=== PATIENT | male | born 1950 | race Caucasian/White ===

== ENCOUNTER → 2017-12-20 | Day surgery (SDC) | payer MEDICARE ==
[~2017-12-20] VITALS: Ht 182.9 cm; Wt 75.0 kg
[~2017-12-20] MED LIST: ALPR1TAB6 PO; AMLO5TAB4 PO; ASPI-621 PO; ASPI1TAB PO; ATOR-2 PO; CLON-365 PO; CLOP75TA PO; LISI-420 PO; MELA1TAB35 PO; MULT-758 PO; OMEP20CA14 PO; PLEASE ENTER HEIGHT AND WEIGHT MC SCH; POLY17PO5 PO; PROPOFOL 10 MG/ML, 20ML ONE; SODIUM CHLORIDE 0.9% 1,000 ML IV SCH; UBID50TA3 PO
[2017-12-20 11:06] VITALS: BP 158/85
== END ==
LOC: CACL 10:41
PROVIDERS: ATTEND Internal Medicine Cardiovascular Disease
DX: I35.1 Nonrheumatic aortic (valve) insufficiency (principal); I10 Essential (primary) hypertension; E78.5 Hyperlipidemia, unspecified
CPT/HCPCS: 93312; 93321; 93325; J2704

== ENCOUNTER 2018-02-12 09:49 | Day surgery (SDC) | payer MEDICARE ==
[~2018-02-12 09:49] MED LIST changes: -PLEASE ENTER HEIGHT AND WEIGHT MC SCH; -PROPOFOL 10 MG/ML, 20ML ONE; -SODIUM CHLORIDE 0.9% 1,000 ML IV SCH
[2018-02-12] MEDS ORDERED: LIDOCAINE-MPF 2% ,5ML ONE (10:27)
[2018-02-12] MEDS ORDERED: POLYETHYLENE GLYCOL 17 GM PACKET PO PRN (11:00)
[2018-02-12] MEDS ORDERED: ALPRazolam 1MG TABLET PO SCH (16:00)
[2018-02-12] MEDS ORDERED: OMEPRAZOLE 20 MG CAPSULE.DR PO SCH (21:00)
[2018-02-12] MEDS ORDERED: MELATONIN 3 MG PO SCH (21:00)
[2018-02-12] MEDS ORDERED: ATORVASTATIN 80 MG TABLET PO SCH (21:00)
[2018-02-13] MEDS ORDERED: ASPIRIN 81 MG TABLET EC PO SCH (06:00)
[2018-02-13] MEDS ORDERED: LISINOPRIL 20 MG TABLET PO SCH (09:00)
[2018-02-13] MEDS ORDERED: UBIDECARENONE 100 MG PO SCH (09:00)
[2018-02-13] MEDS ORDERED: CLOPIDOGREL 75 MG TABLET PO SCH (09:00)
[2018-02-13] MEDS ORDERED: AMLODIPINE 5 MG TABLET PO SCH (09:00)
== END 2018-02-12 11:07 ==
LOC: CACL 09:49
PROVIDERS: ATTEND Internal Medicine Cardiovascular Disease
DX: I63.9 Cerebral infarction, unspecified (principal); E78.5 Hyperlipidemia, unspecified; Z79.82 Long term (current) use of aspirin; Z88.0 Allergy status to penicillin; Z88.1 Allergy status to other antibiotic agents
CPT/HCPCS: 33282; C1764; J3490

== ENCOUNTER → 2018-04-23 | Outpatient (CLI) | payer MEDICARE ==
[~2018-04-23] MED LIST changes: -CLON-365 PO; +CLON1TAB4 PO
== END | disposition home or self-care (01) ==
LOC: CFH 08:10
PROVIDERS: ATTEND Internal Medicine Cardiovascular Disease
DX: I21.19 ST elevation (STEMI) myocardial infarction involving other coronary artery of inferior wall (principal); I25.9 Chronic ischemic heart disease, unspecified; I44.0 Atrioventricular block, first degree; I10 Essential (primary) hypertension; K21.9 Gastro-esophageal reflux disease without esophagitis; Z79.02 Long term (current) use of antithrombotics/antiplatelets; Z79.82 Long term (current) use of aspirin
CPT/HCPCS: 78452; 93017; A9502

== ENCOUNTER → 2018-07-17 | Outpatient (CLI) | payer MEDICARE ==
[~2018-07-17] MED LIST changes: +CLON1TAB11 PO; -CLON1TAB4 PO
[2018-07-17 15:57] LABS: ALANINE AMINOTRANSFERASE 44 U/L (12-78); ALBUMIN 4.5 g/dL (3.4-5.0)
[2018-07-17 16:22] LABS: CREATINE KINASE, TOTAL 104 U/L (39-308)
[2018-07-17 16:23] LABS: FOLATE LEVEL > 20.0 ng/mL (3.1-17.5)
== END | disposition home or self-care (01) ==
LOC: CFH 10:58
PROVIDERS: ATTEND Nurse Practitioner Family
DX: I63.9 Cerebral infarction, unspecified (principal)
CPT/HCPCS: 36415; 82040; 82550; 82607; 82746; 83519; 84403; 84425; 84443; 84450; 84460

== ENCOUNTER → 2018-08-18 | Outpatient (CLI) | payer MEDICARE ==
[~2018-08-18] MED LIST changes: -ASPI-621 PO; +ASPI81TA45 PO
== END | disposition home or self-care (01) ==
LOC: CFH 07:23
PROVIDERS: ATTEND Nurse Practitioner Family
DX: M51.36 Other intervertebral disc degeneration, lumbar region (principal); M47.892 Other spondylosis, cervical region; M48.03 Spinal stenosis, cervicothoracic region; M48.07 Spinal stenosis, lumbosacral region; I63.9 Cerebral infarction, unspecified; G31.89 Other specified degenerative diseases of nervous system; M62.81 Muscle weakness (generalized)
CPT/HCPCS: 70551; 72141; 72148

== ENCOUNTER 2018-08-20 18:01 | Inpatient (IN) | payer MEDICARE ==
[~2018-08-20] VITALS: Ht 182.9 cm; Wt 73.4 kg
[2018-08-20 19:04] LABS: BASOPHILS # (AUTO) 0.01 x10^3/uL (0-0.1); BASOPHILS % (AUTO) 0 % (0-1); EOSINOPHILS # (AUTO) 0.04 x10^3/uL (0-0.4); EOSINOPHILS % (AUTO) 1 % (1-7); LYMPHOCYTES # (AUTO) 1.23 x10^3/uL (1-3.4); LYMPHOCYTES % (AUTO) 22 % (22-44); MD NO; MEAN CORPUSCULAR HEMOGLOBIN 31.2 pg (27.5-34.5); MEAN CORPUSCULAR VOLUME 91.8 fL (81-97); MEAN PLATELET VOLUME 8.4 fL (7.4-10.4); MONOCYTES # (AUTO) 0.34 x10^3/uL (0.2-0.8); MONOCYTES % (AUTO) 6 % (2-9); NEUTROPHILS # (AUTO) 3.91 x10^3/uL (1.8-6.8); NEUTROPHILS % (AUTO) 71 % (42-75); PLATELET COUNT 289 x10^3/uL (130-400); RED BLOOD COUNT 5.18 x10^6/uL (4.38-5.82); RED CELL DISTRIBUTION WIDTH 14.1 % (9.4-14.8)
[2018-08-20 19:10] LABS: INTERNATIONAL NORMALIZED RATIO 1.07 (0.93-1.1); PROTHROMBIN TIME 11.3 Seconds (9.6-11.5)
[2018-08-20 19:12] LABS: ALANINE AMINOTRANSFERASE 32 U/L (12-78); ANION GAP 7 mmol/L (5-15); CALCIUM 8.8 mg/dL (8.5-10.1); CHLORIDE 106 mmol/L (98-107); CREATININE 0.84 mg/dL (0.7-1.3)
[2018-08-20 19:17] LABS: ALKALINE PHOSPHATASE 44 U/L (45-117); BILIRUBIN,TOTAL 0.5 mg/dL (0.2-1.0); TROPONIN I < 0.015 ng/mL (0.000-0.045)
[2018-08-20] MEDS ORDERED: BISACODYL 10 MG SUPP PR PRN (22:00)
[2018-08-20] MEDS ORDERED: LABETALOL 5MG/ML, 20ML IVPush PRN (22:00)
[2018-08-20] MEDS ORDERED: POLYETHYLENE GLYCOL 17 GM PACKET PO PRN (22:00)
[2018-08-20] MEDS ORDERED: PROMETHAZINE 25 MG/ML, 1ML IM PRN (22:00)
[2018-08-20] MEDS ORDERED: ONDANSETRON 2MG/ML, 2ML IVPush PRN (22:00)
[2018-08-20] MEDS ORDERED: OXYcodone IR 5MG TABLET PO PRN (22:00)
[2018-08-20] MEDS ORDERED: hydrALAzine 20 MG/ML, 1ML IVPush PRN (22:00)
[2018-08-20] MEDS ORDERED: METHOCARBAMOL 500 MG TABLET PO PRN (22:00)
[2018-08-20] MEDS ORDERED: morphine SULFATE 10 MG/ML, 1ML IVPush PRN (22:00)
[2018-08-20] MEDS ORDERED: GABAPENTIN 300 MG CAPSULE PO PRN (22:00)
[2018-08-20 22:32] LABS: FREE T4 (FREE THYROXINE) 1.32 ng/dL (0.76-1.46); THYROID STIMULATING HORMONE 2.88 mIU/L (0.358-3.740)
[2018-08-20 23:47] VITALS: BP 148/83
[2018-08-21] MEDS: SODIUM CHLORIDE 0.9% 1,000 ML IV SCH ×2 (00:04→08:26)
[2018-08-21] MEDS: OMEPRAZOLE 20 MG CAPSULE.DR PO SCH ×2 (00:20→21:35)
[2018-08-21 01:39] VITALS: BP 152/76
[2018-08-21 04:44] LABS: MICROSCOPIC NOT IND
[2018-08-21 04:46] LABS: CULTURE INDICATED? NO
[2018-08-21 05:23] LABS: CHLORIDE 110 mmol/L (98-107)
[2018-08-21 05:25] LABS: BASOPHILS # (AUTO) 0.01 x10^3/uL (0-0.1); BASOPHILS % (AUTO) 0 % (0-1); EOSINOPHILS # (AUTO) 0.04 x10^3/uL (0-0.4); EOSINOPHILS % (AUTO) 1 % (1-7); LYMPHOCYTES # (AUTO) 1.24 x10^3/uL (1-3.4); LYMPHOCYTES % (AUTO) 31 % (22-44); MD NO; MEAN CORPUSCULAR HEMOGLOBIN 30.6 pg (27.5-34.5); MEAN CORPUSCULAR HGB CONC 33.7 g/dL (33.2-36.2); MEAN CORPUSCULAR VOLUME 90.6 fL (81-97); MEAN PLATELET VOLUME 8.4 fL (7.4-10.4); MONOCYTES # (AUTO) 0.41 x10^3/uL (0.2-0.8); MONOCYTES % (AUTO) 10 % (2-9); NEUTROPHILS # (AUTO) 2.29 x10^3/uL (1.8-6.8); NEUTROPHILS % (AUTO) 58 % (42-75); PLATELET COUNT 244 x10^3/uL (130-400); RED BLOOD COUNT 4.91 x10^6/uL (4.38-5.82); RED CELL DISTRIBUTION WIDTH 14.1 % (9.4-14.8)
[2018-08-21 05:31] LABS: ALANINE AMINOTRANSFERASE 31 U/L (12-78); ALBUMIN 3.5 g/dL (3.4-5.0); ALKALINE PHOSPHATASE 38 U/L (45-117); ANION GAP 9 mmol/L (5-15); BILIRUBIN,TOTAL 0.6 mg/dL (0.2-1.0); CALCIUM 8.5 mg/dL (8.5-10.1); CHOL/HDL RATIO 3.5; CHOLESTEROL, TOTAL 138 mg/dL (140-239); CREATININE 0.75 mg/dL (0.7-1.3); HDL CHOL % 28 % (26-37); HDL CHOLESTEROL (DIRECT) 39 mg/dL (40-60); LDL CHOLESTEROL,CALCULATED 86 mg/dL (54-169); LDL/HDL RATIO 2.2 (0.5-3.0); TOTAL PROTEIN 6.1 g/dL (6.4-8.2); TRIGLYCERIDES 65 mg/dL (50-200); VLDL CHOLESTEROL 13 mg/dL (0-25)
[2018-08-21 08:08] VITALS: BP 130/82
[2018-08-21] MEDS: MULTIVITAMIN 1 TABLET PO SCH (08:27)
[2018-08-21] MEDS: LISINOPRIL 20 MG TABLET PO SCH (08:27)
[2018-08-21] MEDS: AMLODIPINE 5 MG TABLET PO SCH (08:27)
[2018-08-21] MEDS ORDERED: ALPR2TAB5 PO (08:45)
[2018-08-21] MEDS: ACETAMINOPHEN 325 MG TABLET PO PRN (08:50)
[2018-08-21 14:18] VITALS: BP 117/71
[2018-08-21 18:52] VITALS: BP 114/70
[2018-08-21] MEDS: ATORVASTATIN 80 MG TABLET PO SCH (21:35)
[2018-08-22 00:43] VITALS: BP 115/70
[2018-08-22 07:42] VITALS: BP 132/76
[2018-08-22] MEDS: MULTIVITAMIN 1 TABLET PO SCH (08:48)
[2018-08-22] MEDS: LISINOPRIL 20 MG TABLET PO SCH (08:48)
[2018-08-22] MEDS: AMLODIPINE 5 MG TABLET PO SCH (08:48)
[2018-08-22] MEDS: ACETAMINOPHEN 325 MG TABLET PO PRN ×2 (09:03→20:20)
[2018-08-22] MEDS: DOCUSATE 100 MG CAPSULE PO PRN (10:53)
[2018-08-22 12:45] VITALS: BP 136/72
[2018-08-22] MEDS ORDERED: CARVEDILOL 6.25 MG TABLET PO SCH (18:00)
[2018-08-22] MEDS: ATORVASTATIN 80 MG TABLET PO SCH (20:19)
[2018-08-22] MEDS: OMEPRAZOLE 20 MG CAPSULE.DR PO SCH (20:19)
[2018-08-22 20:47] VITALS: BP 111/67
[2018-08-23 03:00] VITALS: BP 144/79
[2018-08-23 07:48] VITALS: BP 138/78
[2018-08-23] MEDS: ACETAMINOPHEN 325 MG TABLET PO PRN ×2 (09:52→21:40)
[2018-08-23] MEDS: LISINOPRIL 20 MG TABLET PO SCH (09:52)
[2018-08-23] MEDS: AMLODIPINE 5 MG TABLET PO SCH (09:52)
[2018-08-23] MEDS: MULTIVITAMIN 1 TABLET PO SCH (09:52)
[2018-08-23 14:10] VITALS: BP 108/69
[2018-08-23] MEDS: DOCUSATE 100 MG CAPSULE PO PRN (15:25)
[2018-08-23 19:54] VITALS: BP 131/76
[2018-08-23] MEDS: ATORVASTATIN 80 MG TABLET PO SCH (21:40)
[2018-08-23] MEDS: OMEPRAZOLE 20 MG CAPSULE.DR PO SCH (21:40)
[2018-08-24 02:07] VITALS: BP 133/79
[2018-08-24] MEDS: LISINOPRIL 20 MG TABLET PO SCH (08:49)
[2018-08-24] MEDS: AMLODIPINE 5 MG TABLET PO SCH (08:49)
[2018-08-24] MEDS: MULTIVITAMIN 1 TABLET PO SCH (08:49)
[2018-08-24 09:00] VITALS: BP 121/73
[2018-08-24 15:38] VITALS: BP 128/82
[2018-08-24] MEDS: OMEPRAZOLE 20 MG CAPSULE.DR PO SCH (17:59)
[2018-08-24 20:00] VITALS: BP 148/82
[2018-08-24] MEDS: ATORVASTATIN 80 MG TABLET PO SCH (21:55)
[2018-08-24] MEDS: ACETAMINOPHEN 325 MG TABLET PO PRN (21:55)
[2018-08-25 00:40] VITALS: BP 130/72
[2018-08-25] MEDS: DOCUSATE 100 MG CAPSULE PO PRN (05:50)
[2018-08-25 06:55] VITALS: BP 122/75
[2018-08-25] MEDS: AMLODIPINE 5 MG TABLET PO SCH (09:19)
[2018-08-25] MEDS: MULTIVITAMIN 1 TABLET PO SCH (09:19)
[2018-08-25] MEDS: LISINOPRIL 20 MG TABLET PO SCH (09:19)
[2018-08-25 13:58] VITALS: BP 125/79
[2018-08-25 19:00] VITALS: BP 130/74
[2018-08-25] MEDS: ACETAMINOPHEN 325 MG TABLET PO PRN (20:47)
[2018-08-25] MEDS: OMEPRAZOLE 20 MG CAPSULE.DR PO SCH (20:47)
[2018-08-25] MEDS: ATORVASTATIN 80 MG TABLET PO SCH (20:47)
[2018-08-26 01:20] VITALS: BP 139/71
[2018-08-26] MEDS: ONDANSETRON ODT 4 MG PO PRN (05:04)
[2018-08-26 05:47] LABS: BASOPHILS # (AUTO) 0.02 x10^3/uL (0-0.1); BASOPHILS % (AUTO) 0 % (0-1); EOSINOPHILS # (AUTO) 0.02 x10^3/uL (0-0.4); EOSINOPHILS % (AUTO) 0 % (1-7); LYMPHOCYTES # (AUTO) 0.95 x10^3/uL (1-3.4); LYMPHOCYTES % (AUTO) 13 % (22-44); MD NO; MEAN CORPUSCULAR HEMOGLOBIN 31.1 pg (27.5-34.5); MEAN CORPUSCULAR HGB CONC 34.6 g/dL (33.2-36.2); MEAN CORPUSCULAR VOLUME 89.9 fL (81-97); MEAN PLATELET VOLUME 8.7 fL (7.4-10.4); MONOCYTES # (AUTO) 0.57 x10^3/uL (0.2-0.8); MONOCYTES % (AUTO) 8 % (2-9); NEUTROPHILS # (AUTO) 6.07 x10^3/uL (1.8-6.8); NEUTROPHILS % (AUTO) 80 % (42-75); PLATELET COUNT 289 x10^3/uL (130-400); RED BLOOD COUNT 5.28 x10^6/uL (4.38-5.82); RED CELL DISTRIBUTION WIDTH 13.8 % (9.4-14.8)
[2018-08-26 05:51] LABS: INTERNATIONAL NORMALIZED RATIO 1.1 (0.93-1.1); PROTHROMBIN TIME 11.6 Seconds (9.6-11.5)
[2018-08-26 05:52] LABS: ANION GAP 10 mmol/L (5-15); CALCIUM 8.8 mg/dL (8.5-10.1); CHLORIDE 100 mmol/L (98-107); CREATININE 0.67 mg/dL (0.7-1.3)
[2018-08-26 07:15] VITALS: BP 136/80
[2018-08-26] MEDS: AMLODIPINE 5 MG TABLET PO SCH (08:30)
[2018-08-26] MEDS: MULTIVITAMIN 1 TABLET PO SCH (08:30)
[2018-08-26] MEDS: LISINOPRIL 20 MG TABLET PO SCH (08:30)
[2018-08-26 14:30] VITALS: BP 115/74
[2018-08-26 20:32] VITALS: BP 126/81
[2018-08-26] MEDS: ATORVASTATIN 80 MG TABLET PO SCH (20:35)
[2018-08-26] MEDS: OMEPRAZOLE 20 MG CAPSULE.DR PO SCH (20:35)
[2018-08-27] MEDS: ONDANSETRON ODT 4 MG PO PRN (00:36)
[2018-08-27 02:42] VITALS: BP 124/75
[2018-08-27 07:05] VITALS: BP 133/82
[2018-08-27] MEDS: MULTIVITAMIN 1 TABLET PO SCH (08:46)
[2018-08-27] MEDS: AMLODIPINE 5 MG TABLET PO SCH (08:46)
[2018-08-27] MEDS: LISINOPRIL 20 MG TABLET PO SCH (08:46)
[2018-08-27 12:48] VITALS: BP 126/84
[2018-08-27 18:49] VITALS: BP 145/84
[2018-08-27] MEDS: ATORVASTATIN 80 MG TABLET PO SCH (19:44)
[2018-08-27] MEDS: OMEPRAZOLE 20 MG CAPSULE.DR PO SCH (19:44)
[2018-08-28 01:07] VITALS: BP 104/68
[2018-08-28] MEDS ORDERED: BACITRACIN/POLYMIXIN B SULFATE OINT 14 GM ONE (06:11)
[2018-08-28] MEDS ORDERED: BUPIVACAINE/PF-EPI 0.5% 1:200K ONE (06:11)
[2018-08-28] MEDS ORDERED: THROMBIN 5,000 UNIT VIAL TP ONE (06:11)
[2018-08-28] MEDS ORDERED: BACITRACIN 50,000 UNIT ONE (06:11)
[2018-08-28 07:28] VITALS: BP 124/81
[2018-08-28] MEDS: AMLODIPINE 5 MG TABLET PO SCH (08:00)
[2018-08-28] MEDS: MULTIVITAMIN 1 TABLET PO SCH (08:00)
[2018-08-28] MEDS: LISINOPRIL 20 MG TABLET PO SCH (08:00)
[2018-08-28] MEDS ORDERED: MIDAZOLAM 1 MG/ML, 2ML ONE (08:27)
[2018-08-28] MEDS ORDERED: PROPOFOL 50 ML ONE ×2 (08:27→12:08)
[2018-08-28] MEDS ORDERED: FENTANYL PF 250 MCG/5ML ONE ×2 (08:28→11:24)
[2018-08-28] MEDS ORDERED: GABAPENTIN 300 MG CAPSULE PO ONE (09:30)
[2018-08-28] MEDS ORDERED: ACETAMINOPHEN 500 MG TABLET PO ONE (09:30)
[2018-08-28] MEDS ORDERED: SCOPOLAMINE PATCH, 1.5MG PATCH.TD72 TD ONE (09:30)
[2018-08-28] MEDS ORDERED: DIAZEPAM 5 MG TABLET PO ONE (09:30)
[2018-08-28] MEDS ORDERED: LIDOCAINE-MPF 2% ,5ML ONE (10:25)
[2018-08-28] MEDS ORDERED: hydrALAzine 20 MG/ML, 1ML IV PRN (12:00)
[2018-08-28] MEDS ORDERED: OXYcodone 5 MG/5 ML ORAL.SOL UDC PO PRN (12:00)
[2018-08-28] MEDS ORDERED: ALBUTEROL/IPRATROPIUM 2.5MG/0.5MG, 3 ML NPPB PRN (12:00)
[2018-08-28] MEDS ORDERED: MIDAZOLAM 1 MG/ML, 2ML IV PRN (12:00)
[2018-08-28] MEDS ORDERED: PROMETHAZINE 25 MG/ML, 1ML IV PRN (12:00)
[2018-08-28] MEDS ORDERED: MEPERIDINE/PF 25MG/0.5ML IVPush PRN (12:00)
[2018-08-28] MEDS ORDERED: LABETALOL 5MG/ML, 20ML IV PRN (12:00)
[2018-08-28] MEDS ORDERED: EPHEDRINE 50 MG/ML, 1ML IM PRN (12:00)
[2018-08-28] MEDS ORDERED: DIAZEPAM 5 MG/ML, 2ML IVPush PRN (12:00)
[2018-08-28] MEDS ORDERED: ONDANSETRON 2MG/ML, 2ML IV PRN ×2 (12:00→16:30)
[2018-08-28] MEDS ORDERED: ONDANSETRON 2MG/ML, 2ML ONE (13:02)
[2018-08-28] MEDS ORDERED: DEXAMETHASONE 4 MG/ML, 1ML ONE (13:02)
[2018-08-28] MEDS ORDERED: GLYCOPYRROLATE 0.2MG/1ML, 5ML ONE (13:02)
[2018-08-28] MEDS ORDERED: PROPOFOL 10 MG/ML, 20ML ONE (13:02)
[2018-08-28] MEDS ORDERED: SUCCINYLCHOLINE 20 MG/ML, 10ML ONE (13:02)
[2018-08-28] MEDS ORDERED: NEOSTIGMINE 1 MG/ML, 10ML ONE (13:02)
[2018-08-28] MEDS ORDERED: CEFAZOLIN 1,000 MG ONE (13:02)
[2018-08-28] MEDS ORDERED: ROCURONIUM 10MG/ML,5ML ONE (13:02)
[2018-08-28] MEDS ORDERED: FENTANYL PF 100 MCG/2ML ONE (13:30)
[2018-08-28] MEDS: FENTANYL PF 100 MCG/2ML IV PRN ×2 (13:34→13:40)
[2018-08-28] MEDS: HYDROmorphone 2 MG/ML, 1ML IVPush PRN ×4 (13:40→14:25)
[2018-08-28] MEDS ORDERED: OXYcodone 5 MG/5 ML ORAL.SOL UDC ONE (13:48)
[2018-08-28] MEDS ORDERED: HYDROmorphone 2 MG/ML, 1ML ONE (13:48)
[2018-08-28 15:52] VITALS: BP 145/83
[2018-08-28] MEDS ORDERED: DIPHENHYDRAMINE 50 MG CAPSULE PO PRN (16:30)
[2018-08-28] MEDS ORDERED: PROMETHAZINE 25 MG/ML, 1ML IM PRN (16:30)
[2018-08-28] MEDS ORDERED: BISACODYL 10 MG SUPP PR PRN (16:30)
[2018-08-28] MEDS ORDERED: MAGNESIUM HYDROXIDE 8%, 30ML UDC PO PRN (16:30)
[2018-08-28] MEDS ORDERED: DIPHENHYDRAMINE 50 MG/ML, 1ML IM PRN (16:30)
[2018-08-28] MEDS: NS + 20MEQ KCL 1,000 ML IV SCH (16:46)
[2018-08-28] MEDS: KETOROLAC 30 MG/1 ML IVPush SCH (16:49)
[2018-08-28] MEDS: CEFAZOLIN 1,000 MG in SODIUM CHLORIDE 0.9% 50 ML IVPB SCH (17:56)
[2018-08-28] MEDS ORDERED: CEFAZOLIN PMX 1GM/50ML 50 ML IVPB SCH (18:00)
[2018-08-28 19:28] VITALS: BP 138/71
[2018-08-28] MEDS: SODIUM CHLORIDE FLUSH 10ML SYR IVF SCH (21:19)
[2018-08-28] MEDS: ATORVASTATIN 80 MG TABLET PO SCH (21:19)
[2018-08-28] MEDS: OMEPRAZOLE 20 MG CAPSULE.DR PO SCH (21:19)
[2018-08-28] MEDS: HYDROcodone/APAP 10/325 MG TABLET PO PRN ×2 (21:38→23:34)
[2018-08-29 00:21] VITALS: BP 124/80
[2018-08-29] MEDS: KETOROLAC 30 MG/1 ML IVPush SCH ×3 (00:37→16:54)
[2018-08-29] MEDS: CEFAZOLIN 1,000 MG in SODIUM CHLORIDE 0.9% 50 ML IVPB SCH (00:37)
[2018-08-29] MEDS: HYDROcodone/APAP 10/325 MG TABLET PO PRN ×3 (03:43→20:26)
[2018-08-29 04:08] VITALS: BP 111/69
[2018-08-29 07:10] VITALS: BP 123/71
[2018-08-29] MEDS: SENNA/DOCUSATE TABLET PO SCH (07:50)
[2018-08-29] MEDS: AMLODIPINE 5 MG TABLET PO SCH (07:50)
[2018-08-29] MEDS: LISINOPRIL 20 MG TABLET PO SCH (07:50)
[2018-08-29] MEDS: MULTIVITAMIN 1 TABLET PO SCH (07:51)
[2018-08-29] MEDS: SODIUM CHLORIDE FLUSH 10ML SYR IVF SCH ×2 (07:52→20:35)
[2018-08-29] MEDS: NS + 20MEQ KCL 1,000 ML IV SCH (08:30)
[2018-08-29 13:56] VITALS: BP 121/71
[2018-08-29] MEDS: OMEPRAZOLE 20 MG CAPSULE.DR PO SCH (20:26)
[2018-08-29] MEDS: ATORVASTATIN 80 MG TABLET PO SCH (20:26)
[2018-08-29 20:47] VITALS: BP 103/64
[2018-08-30] MEDS: KETOROLAC 30 MG/1 ML IVPush SCH ×2 (00:32→09:05)
[2018-08-30] MEDS: NS + 20MEQ KCL 1,000 ML IV SCH ×2 (00:32→13:01)
[2018-08-30] MEDS: HYDROcodone/APAP 10/325 MG TABLET PO PRN ×4 (00:43→21:11)
[2018-08-30 00:59] VITALS: BP 109/68
[2018-08-30 04:15] LABS: ANION GAP 7 mmol/L (5-15); CALCIUM 8.1 mg/dL (8.5-10.1); CHLORIDE 98 mmol/L (98-107); CREATININE 0.65 mg/dL (0.7-1.3)
[2018-08-30 04:22] LABS: BASOPHILS # (AUTO) 0.03 x10^3/uL (0-0.1); BASOPHILS % (AUTO) 0 % (0-1); EOSINOPHILS # (AUTO) 0.04 x10^3/uL (0-0.4); EOSINOPHILS % (AUTO) 1 % (1-7); LYMPHOCYTES # (AUTO) 0.95 x10^3/uL (1-3.4); LYMPHOCYTES % (AUTO) 13 % (22-44); MD NO; MEAN CORPUSCULAR HEMOGLOBIN 31.2 pg (27.5-34.5); MEAN CORPUSCULAR HGB CONC 33.9 g/dL (33.2-36.2); MEAN CORPUSCULAR VOLUME 92.1 fL (81-97); MEAN PLATELET VOLUME 8.5 fL (7.4-10.4); MONOCYTES # (AUTO) 0.55 x10^3/uL (0.2-0.8); MONOCYTES % (AUTO) 7 % (2-9); NEUTROPHILS # (AUTO) 6.02 x10^3/uL (1.8-6.8); NEUTROPHILS % (AUTO) 79 % (42-75); PLATELET COUNT 225 x10^3/uL (130-400); RED BLOOD COUNT 4.28 x10^6/uL (4.38-5.82); RED CELL DISTRIBUTION WIDTH 13.6 % (9.4-14.8)
[2018-08-30 07:48] VITALS: BP 132/74
[2018-08-30] MEDS: SODIUM CHLORIDE FLUSH 10ML SYR IVF SCH ×2 (09:00→21:11)
[2018-08-30] MEDS: SENNA/DOCUSATE TABLET PO SCH (09:00)
[2018-08-30] MEDS: AMLODIPINE 5 MG TABLET PO SCH (09:06)
[2018-08-30] MEDS: LISINOPRIL 20 MG TABLET PO SCH (09:06)
[2018-08-30] MEDS: MULTIVITAMIN 1 TABLET PO SCH (09:06)
[2018-08-30 14:01] VITALS: BP 111/67
[2018-08-30 20:00] VITALS: BP 135/80
[2018-08-30 21:07] VITALS: BP 131/76
[2018-08-30] MEDS: OMEPRAZOLE 20 MG CAPSULE.DR PO SCH (21:10)
[2018-08-30] MEDS: ATORVASTATIN 80 MG TABLET PO SCH (21:10)
[2018-08-30] MEDS: METHOCARBAMOL 750 MG TABLET PO PRN (21:11)
[2018-08-31] MEDS: NS + 20MEQ KCL 1,000 ML IV SCH ×2 (01:47→14:06)
[2018-08-31 02:05] VITALS: BP 145/77
[2018-08-31 07:20] VITALS: BP 144/76
[2018-08-31] MEDS: SENNA/DOCUSATE TABLET PO SCH ×2 (07:20→08:48)
[2018-08-31] MEDS: MULTIVITAMIN 1 TABLET PO SCH (07:28)
[2018-08-31] MEDS: AMLODIPINE 5 MG TABLET PO SCH (07:28)
[2018-08-31] MEDS: LISINOPRIL 20 MG TABLET PO SCH (07:28)
[2018-08-31] MEDS: HYDROcodone/APAP 10/325 MG TABLET PO PRN ×3 (07:28→18:32)
[2018-08-31] MEDS: SODIUM CHLORIDE FLUSH 10ML SYR IVF SCH ×2 (07:29→21:42)
[2018-08-31] MEDS: METHOCARBAMOL 750 MG TABLET PO PRN ×2 (08:48→21:43)
[2018-08-31] MEDS ORDERED: POTASSIUM CHLORIDE 20 MEQ TAB.ER.PRT PO ONE (12:30)
[2018-08-31 14:00] VITALS: BP 129/74
[2018-08-31 19:22] VITALS: BP 123/65
[2018-08-31] MEDS: MAGNESIUM OXIDE 400 MG TABLET PO SCH (21:42)
[2018-08-31] MEDS: ATORVASTATIN 80 MG TABLET PO SCH (21:43)
[2018-08-31] MEDS: OMEPRAZOLE 20 MG CAPSULE.DR PO SCH (21:43)
[2018-09-01 02:17] VITALS: BP 118/75
[2018-09-01] MEDS: HYDROcodone/APAP 10/325 MG TABLET PO PRN ×2 (03:15→10:18)
[2018-09-01] MEDS: NS + 20MEQ KCL 1,000 ML IV SCH ×2 (03:44→18:26)
[2018-09-01 05:54] LABS: ANION GAP 7 mmol/L (5-15); CALCIUM 8.2 mg/dL (8.5-10.1); CHLORIDE 102 mmol/L (98-107); CREATININE 0.53 mg/dL (0.7-1.3)
[2018-09-01] MEDS: METHOCARBAMOL 750 MG TABLET PO PRN ×2 (06:13→22:38)
[2018-09-01 07:18] VITALS: BP 121/73
[2018-09-01] MEDS: SENNA/DOCUSATE TABLET PO SCH (09:19)
[2018-09-01] MEDS: DOCUSATE 100 MG CAPSULE PO PRN ×2 (09:19→22:38)
[2018-09-01] MEDS: LISINOPRIL 20 MG TABLET PO SCH (09:19)
[2018-09-01] MEDS: MAGNESIUM OXIDE 400 MG TABLET PO SCH (09:19)
[2018-09-01] MEDS: AMLODIPINE 5 MG TABLET PO SCH (09:20)
[2018-09-01] MEDS: SODIUM CHLORIDE FLUSH 10ML SYR IVF SCH ×2 (09:20→22:40)
[2018-09-01] MEDS: MULTIVITAMIN 1 TABLET PO SCH (09:20)
[2018-09-01] MEDS ORDERED: MAGNESIUM SULFATE PMX 2GM/50ML 50 ML IV ONE (12:00)
[2018-09-01 12:47] VITALS: BP 118/76
[2018-09-01 19:13] VITALS: BP 136/82
[2018-09-01] MEDS: OMEPRAZOLE 20 MG CAPSULE.DR PO SCH (22:38)
[2018-09-01] MEDS: ATORVASTATIN 80 MG TABLET PO SCH (22:38)
[2018-09-02 01:46] VITALS: BP 141/83
[2018-09-02] MEDS: HYDROcodone/APAP 10/325 MG TABLET PO PRN (04:01)
[2018-09-02] MEDS: NS + 20MEQ KCL 1,000 ML IV SCH (06:22)
[2018-09-02 07:23] VITALS: BP 157/85
[2018-09-02 10:35] VITALS: BP 134/79
[2018-09-02] MEDS: SODIUM CHLORIDE FLUSH 10ML SYR IVF SCH (10:37)
[2018-09-02] MEDS: AMLODIPINE 5 MG TABLET PO SCH (10:38)
[2018-09-02] MEDS: LISINOPRIL 20 MG TABLET PO SCH (10:38)
[2018-09-02] MEDS: SENNA/DOCUSATE TABLET PO SCH (10:38)
[2018-09-02] MEDS: MULTIVITAMIN 1 TABLET PO SCH (10:38)
[2018-09-02 12:48] VITALS: BP 108/72
[2018-09-02] MEDS ORDERED: HYDR-3307 PO (13:13)
[2018-09-02] MEDS ORDERED: METH750T2 PO (13:13)
== END 2018-09-02 18:51 | DRG 471 ==
LOC: ED 20:21 → EDIP 20:23 → ED 20:28 → 4WST 23:00
PROVIDERS: ADMIT Internal Medicine; ATTEND Internal Medicine
PROC: 0RG1071 Fusion of Cervical Vertebral Joint with Autologous Tissue Substitute, Posterior Approach, Posterior Column, Open Approach (ICD-10-PCS; principal; 2018-08-28 10:00)
DX: M47.12 Other spondylosis with myelopathy, cervical region (principal); R53.2 Functional quadriplegia; E87.1 Hypo-osmolality and hyponatremia; M48.02 Spinal stenosis, cervical region; M54.10 Radiculopathy, site unspecified; E78.00 Pure hypercholesterolemia, unspecified; E78.5 Hyperlipidemia, unspecified; F41.1 Generalized anxiety disorder; I10 Essential (primary) hypertension; K21.9 Gastro-esophageal reflux disease without esophagitis; I25.10 Atherosclerotic heart disease of native coronary artery without angina pectoris; I48.0 Paroxysmal atrial fibrillation; E83.42 Hypomagnesemia; I35.1 Nonrheumatic aortic (valve) insufficiency; M19.012 Primary osteoarthritis, left shoulder; M47.816 Spondylosis without myelopathy or radiculopathy, lumbar region; W19.XXXA Unspecified fall, initial encounter; W18.39XA Other fall on same level, initial encounter; Y93.89 Activity, other specified; Y92.89 Other specified places as the place of occurrence of the external cause; I25.2 Old myocardial infarction; Y99.8 Other external cause status; Z79.02 Long term (current) use of antithrombotics/antiplatelets; Z86.73 Personal history of transient ischemic attack (TIA), and cerebral infarction without residual deficits; Z87.19 Personal history of other diseases of the digestive system; Z98.1 Arthrodesis status; Z88.0 Allergy status to penicillin
CPT/HCPCS: 36415; 71045; 72040; 80048; 80053; 80061; 81003; 83036; 83735; 83880; 84100; 84439; 84443; 84484; 85025; 85610; 93005; 99285; C1713; G0378; J0690; J1100; J1170; J1885; J2250; J2405; J2704; J2710; J3010; J3360; J3480; J3490; Q0162; J0330; J3475; J7030

== ENCOUNTER → 2018-09-22 | Outpatient (CLI) | payer MEDICARE ==
[~2018-09-22] MED LIST changes: +ALPR2TAB5 PO; +HYDR-3307 PO; +METH750T2 PO
== END | disposition home or self-care (01) ==
LOC: RAD 13:03
PROVIDERS: ATTEND Neurological Surgery
DX: M47.12 Other spondylosis with myelopathy, cervical region (principal)
CPT/HCPCS: 72040

== ENCOUNTER → 2019-01-28 | Outpatient (CLI) | payer MEDICARE | END | disposition home or self-care (01) | LOC: CFH 08:02 | PROVIDERS: ATTEND Internal Medicine Cardiovascular Disease | DX: R07.9 Chest pain, unspecified (principal) | CPT/HCPCS: 78452; 93017; A9502 ==

== ENCOUNTER → 2019-02-12 | Outpatient (CLI) | payer MEDICARE | END | disposition home or self-care (01) | LOC: RAD 11:37 | PROVIDERS: ATTEND Family Medicine | DX: R13.10 Dysphagia, unspecified (principal) | CPT/HCPCS: 74230 ==

== ENCOUNTER → 2019-03-10 | Outpatient (CLI) | payer MEDICARE | END | disposition home or self-care (01) | LOC: CVU 06:56 | PROVIDERS: ATTEND Surgery Vascular Surgery | DX: I70.201 Unspecified atherosclerosis of native arteries of extremities, right leg (principal); K21.9 Gastro-esophageal reflux disease without esophagitis; I10 Essential (primary) hypertension | CPT/HCPCS: 93922; 93926 ==

== ENCOUNTER → 2019-07-29 | Outpatient (CLI) | payer MEDICARE ==
[~2019-07-29] MED LIST changes: -HYDR-3307 PO; +HYDR-36 PO
[2019-07-29 09:36] LABS: CHLORIDE 110 mmol/L (98-107)
[2019-07-29 09:46] LABS: ALANINE AMINOTRANSFERASE 33 U/L (12-78); ALBUMIN 3.8 g/dL (3.4-5.0); ALKALINE PHOSPHATASE 39 U/L (45-117); ANION GAP 6 mmol/L (5-15); BILIRUBIN,TOTAL 0.6 mg/dL (0.2-1.0); CALCIUM 8.6 mg/dL (8.5-10.1); CHOLESTEROL, TOTAL 99 mg/dL (140-239); CREATININE 0.89 mg/dL (0.7-1.3); HDL CHOL % 51 % (26-37); HDL CHOLESTEROL (DIRECT) 50 mg/dL (40-60); LDL CHOLESTEROL,CALCULATED 39 mg/dL (54-169); LDL/HDL RATIO 0.8 (0.5-3.0); TOTAL PROTEIN 6.4 g/dL (6.4-8.2); TRIGLYCERIDES 51 mg/dL (50-200); VLDL CHOLESTEROL 10 mg/dL (0-25)
== END | disposition home or self-care (01) ==
LOC: CFH 08:44
PROVIDERS: ATTEND Internal Medicine Cardiovascular Disease
DX: E78.5 Hyperlipidemia, unspecified (principal); I63.9 Cerebral infarction, unspecified
CPT/HCPCS: 36415; 80053; 80061

== ENCOUNTER 2019-08-11 09:07 | Outpatient (CLI) | payer MEDICARE ==
[2019-08-11] MEDS ORDERED: GABA600T7 PO (10:00)
[2019-08-11] MEDS ORDERED: CLOP75TA PO (10:15)
[2019-08-11] MEDS ORDERED: PSYL174P2 PO (10:15)
[2019-08-11] MEDS ORDERED: METH750T2 PO (10:15)
[2019-08-11] MEDS ORDERED: ROSU40TA PO (10:15)
[2019-08-11 10:25] LABS: INTERNATIONAL NORMALIZED RATIO 1.05 (0.93-1.1)
[2019-08-11 10:26] LABS: ALANINE AMINOTRANSFERASE 43 U/L (12-78); ALBUMIN 4.2 g/dL (3.4-5.0); CALCIUM 8.9 mg/dL (8.5-10.1); CHLORIDE 108 mmol/L (98-107); CREATININE 0.73 mg/dL (0.7-1.3)
[2019-08-11 10:29] LABS: ALKALINE PHOSPHATASE 45 U/L (45-117); BILIRUBIN,TOTAL 0.7 mg/dL (0.2-1.0)
[2019-08-11 10:45] LABS: BASOPHILS # (AUTO) 0.01 x10^3/uL (0-0.1); BASOPHILS % (AUTO) 0 % (0-1); EOSINOPHILS # (AUTO) 0.11 x10^3/uL (0-0.4); EOSINOPHILS % (AUTO) 3 % (1-7); LYMPHOCYTES # (AUTO) 1.18 x10^3/uL (1-3.4); LYMPHOCYTES % (AUTO) 27 % (22-44); MD NO; MEAN CORPUSCULAR HEMOGLOBIN 31.3 pg (27.5-34.5); MEAN CORPUSCULAR HGB CONC 33.2 g/dL (33.2-36.2); MEAN CORPUSCULAR VOLUME 94.3 fL (81-97); MEAN PLATELET VOLUME 8.6 fL (7.4-10.4); MONOCYTES % (AUTO) 7 % (2-9); NEUTROPHILS # (AUTO) 2.75 x10^3/uL (1.8-6.8); NEUTROPHILS % (AUTO) 63 % (42-75); PLATELET COUNT 245 x10^3/uL (130-400); RED BLOOD COUNT 4.94 x10^6/uL (4.38-5.82)
[2019-08-11 10:57] LABS: ANION GAP 6 mmol/L (5-15)
== END 2019-08-11 23:59 | disposition home or self-care (01) ==
LOC: STAR 09:07
PROVIDERS: ATTEND Neurological Surgery
DX: Z01.818 Encounter for other preprocedural examination (principal); M48.061 Spinal stenosis, lumbar region without neurogenic claudication; I49.3 Ventricular premature depolarization; Z87.891 Personal history of nicotine dependence
CPT/HCPCS: 36415; 71046; 80053; 85025; 85610; 85730; 93005

== ENCOUNTER → 2019-11-02 | Outpatient (CLI) | payer MEDICARE ==
[~2019-11-02] MED LIST changes: +GABA600T7 PO; -OMEP20CA14 PO; +OMEP20CA20 PO; +PSYL174P2 PO; +ROSU40TA PO
[2019-11-02 13:44] LABS: CHLORIDE 109 mmol/L (98-107)
[2019-11-02 13:55] LABS: ALANINE AMINOTRANSFERASE 28 U/L (12-78); ALBUMIN 3.6 g/dL (3.4-5.0); ALKALINE PHOSPHATASE 41 U/L (45-117); ANION GAP 7 mmol/L (5-15); BILIRUBIN,TOTAL 0.9 mg/dL (0.2-1.0); CALCIUM 8.4 mg/dL (8.5-10.1); CHOL/HDL RATIO 2.7; CHOLESTEROL, TOTAL 128 mg/dL (140-239); CREATININE 0.79 mg/dL (0.7-1.3); HDL CHOL % 38 % (26-37); HDL CHOLESTEROL (DIRECT) 48 mg/dL (40-60); LDL CHOLESTEROL,CALCULATED 65 mg/dL (54-169); LDL/HDL RATIO 1.4 (0.5-3.0); TOTAL PROTEIN 6.3 g/dL (6.4-8.2); TRIGLYCERIDES 74 mg/dL (50-200); VLDL CHOLESTEROL 15 mg/dL (0-25)
== END | disposition home or self-care (01) ==
LOC: CFH 10:15
PROVIDERS: ATTEND Internal Medicine Cardiovascular Disease
DX: E78.5 Hyperlipidemia, unspecified (principal)
CPT/HCPCS: 36415; 80053; 80061

== ENCOUNTER → 2020-01-29 | Outpatient (CLI) | payer MEDICARE ==
[2020-01-29 12:11] LABS: MEAN CORPUSCULAR HEMOGLOBIN 30.2 pg (27.5-34.5); MEAN CORPUSCULAR HGB CONC 33.3 g/dL (33.2-36.2); MEAN CORPUSCULAR VOLUME 90.7 fL (81-97); MEAN PLATELET VOLUME 8.8 fL (7.4-10.4); PLATELET COUNT 200 x10^3/uL (130-400); RED BLOOD COUNT 5.17 x10^6/uL (4.38-5.82); RED CELL DISTRIBUTION WIDTH 14.8 % (9.4-14.8)
[2020-01-29 13:15] LABS: ALBUMIN 3.9 g/dL (3.4-5.0); ANION GAP 5 mmol/L (5-15); CALCIUM 8.7 mg/dL (8.5-10.1); CHLORIDE 108 mmol/L (98-107)
[2020-01-29 13:28] LABS: ALANINE AMINOTRANSFERASE 27 U/L (12-78); ALKALINE PHOSPHATASE 35 U/L (45-117); BILIRUBIN,TOTAL 0.6 mg/dL (0.2-1.0); CHOL/HDL RATIO 2.5; CHOLESTEROL, TOTAL 119 mg/dL (140-239); HDL CHOL % 40 % (26-37); HDL CHOLESTEROL (DIRECT) 48 mg/dL (40-60); LDL CHOLESTEROL,CALCULATED 62 mg/dL (54-169); LDL/HDL RATIO 1.3 (0.5-3.0); TOTAL PROTEIN 6.5 g/dL (6.4-8.2); TRIGLYCERIDES 47 mg/dL (50-200); VLDL CHOLESTEROL 9 mg/dL (0-25)
== END | disposition home or self-care (01) ==
LOC: LAB 10:16
PROVIDERS: ATTEND Internal Medicine Cardiovascular Disease
DX: I48.91 Unspecified atrial fibrillation (principal); I63.9 Cerebral infarction, unspecified; I10 Essential (primary) hypertension; E78.5 Hyperlipidemia, unspecified; G62.9 Polyneuropathy, unspecified; R93.1 Abnormal findings on diagnostic imaging of heart and coronary circulation; Z79.899 Other long term (current) drug therapy
CPT/HCPCS: 36415; 80053; 80061; 82306; 84443; 85027

== ENCOUNTER → 2020-04-26 | Outpatient (CLI) | payer MEDICARE ==
[~2020-04-26] MED LIST changes: +HYDR-3246 PO; -HYDR-36 PO
[2020-04-26 12:16] LABS: MEAN CORPUSCULAR HEMOGLOBIN 30.5 pg (27.5-34.5); MEAN CORPUSCULAR HGB CONC 33.1 g/dL (33.2-36.2); MEAN CORPUSCULAR VOLUME 92.2 fL (81-97); MEAN PLATELET VOLUME 8.9 fL (7.4-10.4); PLATELET COUNT 205 x10^3/uL (130-400); RED BLOOD COUNT 5.07 x10^6/uL (4.38-5.82); RED CELL DISTRIBUTION WIDTH 14.5 % (9.4-14.8)
[2020-04-26 12:28] LABS: ALANINE AMINOTRANSFERASE 26 U/L (12-78); ALBUMIN 4.2 g/dL (3.4-5.0); ANION GAP 5 mmol/L (5-15); CALCIUM 9.2 mg/dL (8.5-10.1); CHLORIDE 111 mmol/L (98-107); CHOLESTEROL, TOTAL 115 mg/dL (140-239); CREATININE 0.83 mg/dL (0.7-1.3); TRIGLYCERIDES 53 mg/dL (50-200); VLDL CHOLESTEROL 11 mg/dL (0-25)
[2020-04-26 12:38] LABS: ALKALINE PHOSPHATASE 39 U/L (45-117); BILIRUBIN,TOTAL 0.7 mg/dL (0.2-1.0); CHOL/HDL RATIO 2.1; HDL CHOL % 48 % (26-37); HDL CHOLESTEROL (DIRECT) 55 mg/dL (40-60); LDL CHOLESTEROL,CALCULATED 49 mg/dL (54-169); LDL/HDL RATIO 0.9 (0.5-3.0); TOTAL PROTEIN 6.5 g/dL (6.4-8.2)
== END | disposition home or self-care (01) ==
LOC: CFH 08:26
PROVIDERS: ATTEND Internal Medicine Cardiovascular Disease
DX: I48.91 Unspecified atrial fibrillation (principal); R93.1 Abnormal findings on diagnostic imaging of heart and coronary circulation; I10 Essential (primary) hypertension; E78.5 Hyperlipidemia, unspecified; G62.9 Polyneuropathy, unspecified; I63.9 Cerebral infarction, unspecified; Z79.899 Other long term (current) drug therapy
CPT/HCPCS: 36415; 80053; 80061; 82306; 84443; 85027

== ENCOUNTER → 2020-04-27 | Outpatient (CLI) | payer MEDICARE | END | disposition home or self-care (01) | LOC: CFH 08:09 | PROVIDERS: ATTEND Internal Medicine Cardiovascular Disease | DX: I08.0 Rheumatic disorders of both mitral and aortic valves (principal); R93.1 Abnormal findings on diagnostic imaging of heart and coronary circulation; I10 Essential (primary) hypertension | CPT/HCPCS: 93306 ==